=== PATIENT | female | born 1965 | race Caucasian/White ===

== ENCOUNTER 2021-11-12 14:37 | Emergency (ER) | payer BC ==
[~2021-11-12] VITALS: Ht 160 cm; Wt 86.2 kg
[2021-11-12] MEDS ORDERED: Norco 5-325 Ta1 EACH PO (16:54)
== END 2021-11-12 17:15 | disposition home or self-care (01) ==
LOC: ER 14:37
DX: R20.0 Anesthesia of skin (principal); M25.511 Pain in right shoulder; Z88.0 Allergy status to penicillin; Z88.2 Allergy status to sulfonamides
CPT/HCPCS: A9270; J1885

== ENCOUNTER → 2021-12-14 | Outpatient (CLI) | payer BC ==
[~2021-12-14] MED LIST: Norco 5-325 Ta1 EACH PO
== END | disposition home or self-care (01) ==
LOC: LAB 06:43 → LAB SHORT 06:43
DX: R23.2 Flushing (principal)
CPT/HCPCS: 81050

== ENCOUNTER → 2022-02-16 | Outpatient (CLI) | payer BC ==
[2022-02-22 12:09] LABS: COPROPORPHYRIN (CP) I 17 ug/L (Undefined); COPROPORPHYRIN (CP) III 103 ug/L (Undefined); HEPTACARBOXYL (7-CP) 2 ug/L (Undefined); HEXACARBOXYL (6-CP) <1 ug/L (Undefined); PENTACARBOXYL (5-CP) 2 ug/L (Undefined); UROPORPHYRINS (UP) 5 ug/L (Undefined)
== END | disposition home or self-care (01) ==
LOC: LAB SHORT 10:30 → LAB FUT 12-17 13:50 → EDSTATUS 12-17 13:50
PROVIDERS: Internal Medicine Hematology & Oncology
DX: R23.2 Flushing (principal)
CPT/HCPCS: 81050; 84120

== ENCOUNTER → 2022-04-27 | Outpatient (CLI) | payer BC ==
[2022-04-27 16:20] LABS: Follicle Stimulating Hormone 1.1 mIU/ml; Thyroxine (T4) 18.6 ug/dL (4.8-13.9)
[2022-04-27 16:24] LABS: Thyroid Stimulating Hormone 0.013 uIU/mL (0.360-4.800)
== END | disposition home or self-care (01) ==
LOC: LAB 09:46 → LAB SHORT 09:46
PROVIDERS: Internal Medicine Hematology & Oncology
DX: E06.3 Autoimmune thyroiditis (principal); R23.2 Flushing
CPT/HCPCS: 83001; 84436; 84443

== ENCOUNTER 2023-02-28 12:54 | Day surgery (SDC) | payer BC ==
[~2023-02-28] VITALS: Ht 160 cm; Wt 83.8 kg
[2023-02-28] MEDS ORDERED: ESTRADIOL (13:14)
[2023-02-28] MEDS ORDERED: Ventolin5 MG/1 ML (13:14)
[2023-02-28] MEDS ORDERED: FURO20 (13:14)
[2023-02-28] MEDS ORDERED: LEVSOD100 (13:15)
[2023-02-28] MEDS ORDERED: Prednisone10 MG (13:15)
[2023-02-28] MEDS ORDERED: GABA800 (13:15)
[2023-02-28] MEDS ORDERED: OMEP20ER (13:15)
[2023-02-28] MEDS ORDERED: RIZATRIPTAN10 MG (13:16)
[2023-02-28] MEDS ORDERED: ONDA4 (13:16)
[2023-02-28] MEDS ORDERED: BUTALB-ACETAMI1 EAC7 (13:16)
[2023-02-28] MEDS ORDERED: PROM12.5S (13:16)
[2023-02-28] MEDS ORDERED: EMGALITY120 MG/1 M (13:17)
[2023-02-28] MEDS ORDERED: [UNRECOGNIZED DRUG - OTHER] (13:17)
[2023-02-28 14:33] VITALS: BP 142/79
== END 2023-02-28 14:35 | disposition home or self-care (01) ==
LOC: ORSCSDS 12:54
PROVIDERS: Internal Medicine Gastroenterology
PROC: 0DB58ZX Excision of Esophagus, Via Natural or Artificial Opening Endoscopic, Diagnostic (ICD-10-PCS; principal; 2023-02-28 15:00)
PROC: 0DJD8ZZ Inspection of Lower Intestinal Tract, Via Natural or Artificial Opening Endoscopic (ICD-10-PCS; principal; 2023-02-28 15:00)
PROC: 0DB68ZX Excision of Stomach, Via Natural or Artificial Opening Endoscopic, Diagnostic (ICD-10-PCS; principal; 2023-02-28 15:00)
DX: R13.10 Dysphagia, unspecified (principal); K21.9 Gastro-esophageal reflux disease without esophagitis; K44.9 Diaphragmatic hernia without obstruction or gangrene; Z12.11 Encounter for screening for malignant neoplasm of colon; K57.30 Diverticulosis of large intestine without perforation or abscess without bleeding; K64.8 Other hemorrhoids; E06.3 Autoimmune thyroiditis; Z79.899 Other long term (current) drug therapy; F17.210 Nicotine dependence, cigarettes, uncomplicated
CPT/HCPCS: 43239; G0121; 88305; 88342; J0461; J2001; J2405; J2704; J7120; Q9968